=== PATIENT | female | born 1960 | race Caucasian/White ===

== ENCOUNTER → 2021-07-27 | Day surgery (SDC) | payer BC ==
[~2021-07-27] VITALS: Ht 165.1 cm; Wt 101.6 kg
[~2021-07-27] MED LIST: BACTRIM DS TAB1 EACH PO; CALCIUM PO; ESOMEPRAZOLE MA20 MG PO; FISH OIL 1,201200 MG PO; GINKGO BILOBA60 M1 PO; HYDROCODON-ACE1 EAC4 PO; PROBIOTIC1 EACH PO; PROBIOTIC250 MG PO; VITAMIN C500 M4 PO; VITAMIN D350 MC3 PO; ZOFRAN 4 MG TAB4 MG SL
== END | disposition home or self-care (01) ==
LOC: OR 10:25
DX: L02.416 Cutaneous abscess of left lower limb (principal); U07.1 COVID-19; E78.5 Hyperlipidemia, unspecified; G47.30 Sleep apnea, unspecified; Z99.89 Dependence on other enabling machines and devices; K21.9 Gastro-esophageal reflux disease without esophagitis; Z88.0 Allergy status to penicillin; Z88.8 Allergy status to other drugs, medicaments and biological substances; Z91.010 Allergy to peanuts; Z79.899 Other long term (current) drug therapy
CPT/HCPCS: 87070; 87205; J1100; J2001; J2250; J2405; J2704; J3010; J3370; J7120; U0002